=== PATIENT | male | born 1985 | race Caucasian/White ===

== ENCOUNTER 2016-03-06 22:33 | Emergency (ER) | payer OTHER ==
[~2016-03-06] VITALS: Ht 175.3 cm; Wt 71.0 kg
[2016-03-06] MEDS ORDERED: HEPATITIS B IMMUNE GLOBULIN IM ONE (22:45)
[2016-03-06 22:49] VITALS: BP 126/74; PULSE 85; RESP 16; TEMP 98.5; O2SAT 99
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
[2016-03-06] MEDS ORDERED: ALPR.5 PO (23:17)
[2016-03-06 23:38] LABS: AMPHETAMINE, URINE NEG (NEG); BARBITURATES, URINE NEG (NEG); COCAINE, URINE NEG (NEG)
[2016-03-08 17:29] LABS: HEPATITIS B SURFACE ANTIBODY GREATER THAN 150 mIU/mL
== END 2016-03-07 01:34 | disposition home or self-care (01) ==
LOC: NEPE 22:33
DX: Z77.21 Contact with and (suspected) exposure to potentially hazardous body fluids (principal)
CPT/HCPCS: 80307; 86317; 86703; 86803; 96372; 99283; J1571